=== PATIENT | female | born 1950 | race Caucasian/White ===

== ENCOUNTER 2021-07-16 16:01 | Inpatient (IN) | payer OTHER ==
[~2021-07-16] VITALS: Ht 152.4 cm; Wt 74.8 kg
[~2021-07-16 16:01] MED LIST: ATARAX25 MG PO; AXID PO; BROVANA15 MCG/2 M INH; BUMEX 1MG TABLET1 MG PO; CARAFATE1 GM PO; CLARITIN10 MG PO; COUMADIN 2MG TAB2 MG PO; COZAAR100 MG PO; DULOXETINE HCL20 MG PO; EMBEDA ER 20-01 EACH PO; GABAPENTIN300 MG PO; GLIMEPIRIDE4 MG PO; GLUCOPHAGE1000 MG PO; HYDROCODON-ACE1 EAC2 PO; HYDROCODONE-APA1 TAB PO; KADIAN20 MG PO; LEVEMIR100 UNIT/1 SUBD; LINZESS290 MCG PO; LIPITOR20 MG PO; MORPHINE 15MG E15 MG PO; MORPHINE SULFAT10 M1 PO; MORPHINE SULFAT15 M1 PO; MS CONTIN15 M1 PO; MS CONTIN15 MG PO; NARCAN4 MG; NEURONTIN600 MG PO; NORCO 5-325 TA1 EAC1 PO; NORCO 5-325 TA1 EACH PO; NORCO 5/3251 EACH PO; NORVASC10 MG PO; NOVOLOG DO100 UNIT/M SUBD; OXYGEN; PHENERGAN25 M1 PO; PROAIR HFA8.5 GM INH; PROTONIX 40MG T40 MG PO; PULMICORT0.5 MG/2 M INH; REGLAN10 MG PO; SPIRIVA 18MCG18 MCG INH; TESSALON PERLE100 M1 PO; VENTOLIN (2.5 MG/3 M INH
[2021-07-16 22:34] LABS: IRON % SATURATION 16.6 %SAT (20-50)
[2021-07-16 22:37] LABS: BASOPHIL 0.5 % (0-2); EOSINOPHIL 0.5 % (0-7); HCT 44.6 % (37.0-47.0); HGB 14.3 g/dl (12.5-16.0); LYMPHOCYTE 54.1 % (15-48); MCH 27.1 pg (25.0-31.0); MCHC 32.1 g/dL (32.0-36.0); MCV 84.6 fL (78.0-100.0); MONOCYTE 4.7 % (0-12); MPV 9.9 fL (6.0-9.5); NEUTROPHIL 39.6 % (41-80); NRBC 0; RBC 5.27 M/uL (4.20-5.40)
[2021-07-16 22:40] LABS: LACTIC ACID 1.7 mmol/L (0.4-1.9)
[2021-07-16 22:51] LABS: PLT 269 K/uL (150-400); WBC 28.4 K/uL (4.0-10.5)
[2021-07-16 23:04] LABS: ALBUMIN 3.7 g/dL (3.4-5.0); ALKALINE PHOSHATASE 88 U/L (46-116); ALT 21 U/L (14-59); AST 17 U/L (15-37); BILIRUBIN - TOTAL 0.3 mg/dL (0.2-1.0); BUN 48 mg/dL (7-18); BUN/CREAT RATIO (CALC) 13.9 RATIO; C-REACTIVE PROTEIN < 0.20 mg/dL (<=0.90); CHLORIDE 99 mmol/L (98-107); CO2 (BICARBONATE) 23 mmol/L (21-32); CPK 98 U/L (26-192); CREATININE 3.46 mg/dL (0.51-0.95); GLOBULIN (CALCULATION) 3.7 g/dL; GLUCOSE 197 mg/dL (74-106); POTASSIUM 3.7 mmol/L (3.5-5.1); TOTAL PROTEIN 7.4 g/dL (6.4-8.2)
[2021-07-16 23:21] LABS: CORONAVIRUS 2019 SARS-COV-2 NEGATIVE (NEGATIVE); INFLUENZA A NAA NEGATIVE (NEGATIVE)
[2021-07-17 01:17] LABS: BILIRUBIN 2+ mg/dL (NEGATIVE); BLOOD NEGATIVE Ery/uL (NEGATIVE); CLARITY CLEAR (CLEAR); COLOR YELLOW (YELLOW); GLUCOSE (U) NORMAL (NORMAL); LEUKOCYTES NEGATIVE Leu/uL (NEGATIVE); NITRITE NEGATIVE (NEGATIVE); PROTEIN TRACE (LOW) mg/dL (NEGATIVE); SPECIFIC GRAVITY >=1.030 (1.001-1.030); UROBILINOGEN 0.2 mg/dL (0.2-1.0)
[2021-07-17 01:22] LABS: AMPHETAMINES NEGATIVE (NEGATIVE); BARBITURATES NEGATIVE (NEGATIVE); ECSTASY (MDMA) NEGATIVE (NEGATIVE); MARIJUANA (THC) NEGATIVE (NEGATIVE); METHADONE NEGATIVE (NEGATIVE); OPIATES POSITIVE (NEGATIVE); OXYCODONE NEGATIVE (NEGATIVE)
[2021-07-17] MEDS ORDERED: NORCO 5-325 TA1 EACH PO (02:31)
[2021-07-17 06:04] LABS: BASOPHIL 0.4 % (0-2); EOSINOPHIL 0.8 % (0-7); HGB 12.6 g/dl (12.5-16.0); LYMPHOCYTE 64.1 % (15-48); MCH 27.3 pg (25.0-31.0); MCHC 31.5 g/dL (32.0-36.0); MCV 86.6 fL (78.0-100.0); MONOCYTE 4.4 % (0-12); MPV 9.2 fL (6.0-9.5); NEUTROPHIL 29.9 % (41-80); NRBC 0; PLT 235 K/uL (150-400); RBC 4.62 M/uL (4.20-5.40); RDW 14.1 % (11.5-14.0)
[2021-07-17 06:10] LABS: INR 1.03 (0.9-1.2); PROTHROMBIN TIME 12.9 SECONDS (11.8-13.4); PTT 25.8 SECONDS (24.4-34.7)
[2021-07-17 06:12] LABS: WBC 31.1 K/uL (4.0-10.5)
[2021-07-17 06:38] LABS: BILIRUBIN - TOTAL 0.2 mg/dL (0.2-1.0); BUN/CREAT RATIO (CALC) 13.5 RATIO; CREATININE 3.63 mg/dL (0.51-0.95); GLOBULIN (CALCULATION) 3.1 g/dL; MAGNESIUM 1.5 mg/dL (1.8-2.4); PHOSPHORUS 7.5 mg/dL (2.6-4.7); POTASSIUM 3.8 mmol/L (3.5-5.1); TOTAL PROTEIN 6.1 g/dL (6.4-8.2)
[2021-07-18 06:11] LABS: BUN/CREAT RATIO (CALC) 17.5 RATIO; CREATININE 2.91 mg/dL (0.51-0.95); PHOSPHORUS 4.9 mg/dL (2.6-4.7); POTASSIUM 3.8 mmol/L (3.5-5.1)
[2021-07-19 06:52] LABS: CREATININE 1.1 mg/dL (0.51-0.95); POTASSIUM 4.1 mmol/L (3.5-5.1)
[2021-07-19] MEDS ORDERED: LACTOBACILLUS1 EACH PO (08:48)
[2021-07-19] MEDS ORDERED: LOPRESSOR25 MG PO (08:51)
[2021-07-19] MEDS ORDERED: NEURONTIN100 MG PO (08:53)
[2021-07-19 09:52] LABS: BASOPHIL 0.4 % (0-2); EOSINOPHIL 0.9 % (0-7); HCT 38.1 % (37.0-47.0); HGB 12.1 g/dl (12.5-16.0); MCH 27.3 pg (25.0-31.0); MCHC 31.8 g/dL (32.0-36.0); MONOCYTE 3.8 % (0-12); MPV 10.1 fL (6.0-9.5); NEUTROPHIL 37.3 % (41-80); NRBC 0; PLT 219 K/uL (150-400); RBC 4.43 M/uL (4.20-5.40); RDW 13.9 % (11.5-14.0); WBC 15.7 K/uL (4.0-10.5)
[2021-07-20 04:13] LABS: BASOPHIL 0.2 % (0-2); EOSINOPHIL 0.1 % (0-7); HCT 37.3 % (37.0-47.0); HGB 11.7 g/dl (12.5-16.0); LYMPHOCYTE 61.9 % (15-48); MCH 26.7 pg (25.0-31.0); MCHC 31.4 g/dL (32.0-36.0); MONOCYTE 4.3 % (0-12); NEUTROPHIL 32.7 % (41-80); NRBC 0; PLT 205 K/uL (150-400); RBC 4.39 M/uL (4.20-5.40); RDW 13.6 % (11.5-14.0); WBC 20.9 K/uL (4.0-10.5)
[2021-07-20 04:29] LABS: BUN/CREAT RATIO (CALC) 19.7 RATIO; CREATININE 0.71 mg/dL (0.51-0.95); MAGNESIUM 1.5 mg/dL (1.8-2.4); POTASSIUM 3.9 mmol/L (3.5-5.1)
[2021-07-20] MEDS ORDERED: PROMETHEGA12.5 MG/SU PR ×2 (10:59→15:26)
[2021-07-20] MEDS ORDERED: ONDANSETRON ODT4 MG PO ×2 (10:59→15:26)
[2021-07-20] MEDS ORDERED: PREDNISONE 20MG20 MG PO ×2 (11:05→15:26)
[2021-07-20] MEDS ORDERED: DUONEB 2.5-0.5M1 AMP NEB ×2 (11:05→15:26)
[2021-07-20] MEDS ORDERED: CEFDINIR300 MG PO ×2 (11:06→15:26)
[2021-07-20] MEDS ORDERED: ADVAIR HFA 115-28 GM INH ×2 (11:30→15:26)
[2021-07-20] MEDS ORDERED: LOPRESSOR25 MG PO (15:27)
== END 2021-07-20 15:56 | disposition home health service (06) | DRG 682 ==
LOC: FER 16:01 → FMS 07-17 00:56
PROVIDERS: Emergency Medicine Emergency Medical Services; Internal Medicine Nephrology; Nurse Practitioner; ADMIT Allergy & Immunology Allergy
DX: N17.9 Acute kidney failure, unspecified (principal); G92.8 Other toxic encephalopathy; C91.10 Chronic lymphocytic leukemia of B-cell type not having achieved remission; D68.51 Activated protein C resistance; N30.00 Acute cystitis without hematuria; E11.9 Type 2 diabetes mellitus without complications; I10 Essential (primary) hypertension; J44.9 Chronic obstructive pulmonary disease, unspecified; E03.9 Hypothyroidism, unspecified; D64.9 Anemia, unspecified; E78.00 Pure hypercholesterolemia, unspecified; K76.0 Fatty (change of) liver, not elsewhere classified; G89.29 Other chronic pain; Z90.710 Acquired absence of both cervix and uterus; Z90.89 Acquired absence of other organs; Z90.49 Acquired absence of other specified parts of digestive tract; Z88.2 Allergy status to sulfonamides; Z88.8 Allergy status to other drugs, medicaments and biological substances; Z87.442 Personal history of urinary calculi; Z98.1 Arthrodesis status; Z87.891 Personal history of nicotine dependence; Z79.4 Long term (current) use of insulin; Z79.84 Long term (current) use of oral hypoglycemic drugs; Z79.899 Other long term (current) drug therapy
CPT/HCPCS: 36415; 36600; 70450; 71045; 71250; 72128; 72131; 76770; 80048; 80053; 80305; 81003; 82140; 82550; 82607; 82803; 82962; 83540; 83550; 83605; 83615; 83735; 84100; 84145; 84484; 84550; 85025; 85610; 85730; 86140; 93005; 94010; 94640; 94760; 97110; 97162; 97166; 97530-GP; 97535; J0360; J0456; J0696; J0780; J1644; J2270; J2405; J3475; J7030; J7050; J7120; J7512; Q0169; U0002

== ENCOUNTER 2021-08-27 16:04 | Inpatient (IN) | payer OTHER ==
[~2021-08-27] VITALS: Ht 152.4 cm; Wt 79.0 kg
[~2021-08-27 16:04] MED LIST changes: +ADVAIR HFA 115-28 GM INH; +CEFDINIR300 MG PO; +DUONEB 2.5-0.5M1 AMP NEB; +HYDROCODON-ACE1 EAC6 PO; +LACTOBACILLUS1 EACH PO; +LOPRESSOR25 MG PO; +NEURONTIN100 MG PO; +ONDANSETRON ODT4 MG PO; +PREDNISONE 20MG20 MG PO; +PROMETHEGA12.5 MG/SU PR; +ZOFRAN4 M1 PO
[2021-08-27 17:34] LABS: BASOPHIL 0.3 % (0-2); HGB 13.4 g/dl (12.5-16.0); MCH 26.8 pg (25.0-31.0); MCHC 31.2 g/dL (32.0-36.0); MONOCYTE 4.6 % (0-12); MPV 8.7 fL (6.0-9.5); NEUTROPHIL 36.9 % (41-80); NRBC 0; PLT 250 K/uL (150-400); RDW 13.1 % (11.5-14.0); WBC 22.6 K/uL (4.0-10.5)
[2021-08-27 17:38] LABS: INR 0.95 (0.9-1.2); PROTHROMBIN TIME 12.1 SECONDS (11.8-13.4); PTT 20.3 SECONDS (24.4-34.7)
[2021-08-27 17:44] LABS: LYMPHOCYTE 56.8 % (15-48)
[2021-08-27 17:46] LABS: ALBUMIN 3.5 g/dL (3.4-5.0); BILIRUBIN - TOTAL 0.3 mg/dL (0.2-1.0); BUN/CREAT RATIO (CALC) 19.4 RATIO; CREATININE 0.62 mg/dL (0.51-0.95); GLOBULIN (CALCULATION) 3.7 g/dL; POTASSIUM 4.5 mmol/L (3.5-5.1); TOTAL PROTEIN 7.2 g/dL (6.4-8.2)
[2021-08-27 18:44] LABS: LACTIC ACID 1.6 mmol/L (0.4-1.9)
[2021-08-27 20:14] LABS: BILIRUBIN NEGATIVE (NEGATIVE); BLOOD TRACE-INTACT Ery/uL (NEGATIVE); CLARITY CLEAR (CLEAR); COLOR YELLOW (YELLOW); GLUCOSE (U) NORMAL (NORMAL); LEUKOCYTES TRACE Leu/uL (NEGATIVE); NITRITE NEGATIVE (NEGATIVE); PROTEIN 1+ mg/dL (NEGATIVE); SPECIFIC GRAVITY <=1.005 (1.001-1.030); UROBILINOGEN 0.2 mg/dL (0.2-1.0); pH 6.5 (5.0-9.0)
[2021-08-27 20:23] LABS: BACTERIA TRACE
--- NOTE | 2021-08-28 05:22 | NUR ---
AFTER ONE TIME LABATOLOL AGAIN D/T ELEVATED BP PTS BP HAS DECREASED TO 182/82. WILL CHECK AGAIN IN 10 MINS.
--- NOTE | 2021-08-28 05:30 | NUR ---
PT BP NOW 184/76; PT RESTING COMFORTABLY.
--- NOTE | 2021-08-28 15:42 | NUR ---
08/28/21 Ms. Palma lives at home with her spouse. She has 02 at 2 L provided by [facility] in [place] and a rw. She is currently on 3L. A referral was made to [facility] per patient choice. - Please notify [facility] at [phone] if patient discharges over the weekend. IF home 02 orders increase to 3L, Please fax orders [facility] at [phone] and instruct patient on turning dial to 3 L.
[2021-08-29 06:50] LABS: BASOPHIL 0.4 % (0-2); EOSINOPHIL 1.5 % (0-7); HCT 41.3 % (37.0-47.0); HGB 12.9 g/dl (12.5-16.0); MCH 27.2 pg (25.0-31.0); MCHC 31.2 g/dL (32.0-36.0); MCV 86.9 fL (78.0-100.0); MONOCYTE 4.6 % (0-12); MPV 8.5 fL (6.0-9.5); NEUTROPHIL 28.9 % (41-80); NRBC 0; PLT 217 K/uL (150-400); RBC 4.75 M/uL (4.20-5.40); WBC 19.7 K/uL (4.0-10.5)
[2021-08-29 06:52] LABS: LYMPHOCYTE 64.2 % (15-48)
[2021-08-29 06:59] LABS: BUN/CREAT RATIO (CALC) 15.8 RATIO; CREATININE 0.57 mg/dL (0.51-0.95); POTASSIUM 4.1 mmol/L (3.5-5.1)
--- NOTE | 2021-08-29 15:34 | NUR ---
08/29 [facility] in [place] verified that patient will not have a co-pay for Eliquis.
[2021-08-30 06:36] LABS: BASOPHIL 0.3 % (0-2); EOSINOPHIL 1.2 % (0-7); HCT 39.6 % (37.0-47.0); HGB 12.1 g/dl (12.5-16.0); MCH 27.1 pg (25.0-31.0); MCHC 30.6 g/dL (32.0-36.0); MCV 88.6 fL (78.0-100.0); MONOCYTE 3.7 % (0-12); MPV 8.8 fL (6.0-9.5); NEUTROPHIL 17.9 % (41-80); NRBC 0; PLT 217 K/uL (150-400); RBC 4.47 M/uL (4.20-5.40); WBC 25.4 K/uL (4.0-10.5)
[2021-08-30 06:39] LABS: LYMPHOCYTE 76.6 % (15-48)
[2021-08-30 06:50] LABS: BUN/CREAT RATIO (CALC) 19.4 RATIO; CREATININE 0.67 mg/dL (0.51-0.95); POTASSIUM 3.9 mmol/L (3.5-5.1)
[2021-08-31 06:44] LABS: BASOPHIL 0.4 % (0-2); EOSINOPHIL 1.1 % (0-7); HCT 38.8 % (37.0-47.0); HGB 12.1 g/dl (12.5-16.0); LYMPHOCYTE 74.6 % (15-48); MCH 27.2 pg (25.0-31.0); MCHC 31.2 g/dL (32.0-36.0); MCV 87.2 fL (78.0-100.0); MONOCYTE 3.5 % (0-12); MPV 8.6 fL (6.0-9.5); NEUTROPHIL 20.2 % (41-80); PLT 193 K/uL (150-400); RBC 4.45 M/uL (4.20-5.40); RDW 12.7 % (11.5-14.0); WBC 22.2 K/uL (4.0-10.5)
[2021-08-31 06:46] LABS: NRBC 0
[2021-08-31 07:12] LABS: BUN/CREAT RATIO (CALC) 28.8 RATIO; CREATININE 0.59 mg/dL (0.51-0.95); POTASSIUM 3.8 mmol/L (3.5-5.1)
[2021-09-01 06:13] LABS: BASOPHIL 0.3 % (0-2); EOSINOPHIL 1.1 % (0-7); HCT 35.6 % (37.0-47.0); HGB 11.1 g/dl (12.5-16.0); MCH 27.1 pg (25.0-31.0); MCHC 31.2 g/dL (32.0-36.0); MONOCYTE 3.4 % (0-12); MPV 9.4 fL (6.0-9.5); NRBC 0; PLT 191 K/uL (150-400); RBC 4.09 M/uL (4.20-5.40); RDW 12.8 % (11.5-14.0); WBC 22.8 K/uL (4.0-10.5)
[2021-09-01 06:24] LABS: BUN/CREAT RATIO (CALC) 25.5 RATIO; CREATININE 0.55 mg/dL (0.51-0.95); POTASSIUM 3.6 mmol/L (3.5-5.1)
--- NOTE | 2021-09-01 12:15 | NUR ---
09/01/21 An order was increase in 02 from 2L to 3L was faxed to [facility]. Report given to MS ALEAH Lemus.
[2021-09-02 07:18] LABS: BASOPHIL 0.4 % (0-2); EOSINOPHIL 1.5 % (0-7); HCT 39.1 % (37.0-47.0); HGB 12.1 g/dl (12.5-16.0); MCH 27.3 pg (25.0-31.0); MCHC 30.9 g/dL (32.0-36.0); MCV 88.3 fL (78.0-100.0); MONOCYTE 4.8 % (0-12); MPV 9.2 fL (6.0-9.5); NRBC 0; PLT 178 K/uL (150-400); RBC 4.43 M/uL (4.20-5.40); WBC 18.3 K/uL (4.0-10.5)
[2021-09-02 07:37] LABS: BUN/CREAT RATIO (CALC) 25.5 RATIO; CREATININE 0.55 mg/dL (0.51-0.95)
[2021-09-02] MEDS ORDERED: ELIQUIS5 MG PO (11:55)
[2021-09-02] MEDS ORDERED: NORVASC5 MG PO (11:55)
--- NOTE | 2021-09-02 13:32 | NUR ---
09/02/21 [facility] was notified of discharge. Report given to Poonam Gilmore MS RN
== END 2021-09-02 13:06 | disposition home health service (06) | DRG 299 ==
LOC: FER 16:04 → FMS 20:24
PROVIDERS: Emergency Medicine; Internal Medicine; ADMIT Internal Medicine
DX: I82.402 Acute embolism and thrombosis of unspecified deep veins of left lower extremity (principal); I26.94 Multiple subsegmental thrombotic pulmonary emboli without acute cor pulmonale; D68.51 Activated protein C resistance; C91.10 Chronic lymphocytic leukemia of B-cell type not having achieved remission; J44.9 Chronic obstructive pulmonary disease, unspecified; Z20.822 Contact with and (suspected) exposure to COVID-19; E11.9 Type 2 diabetes mellitus without complications; I10 Essential (primary) hypertension; K76.0 Fatty (change of) liver, not elsewhere classified; D64.9 Anemia, unspecified; R51.9 Headache, unspecified; E78.00 Pure hypercholesterolemia, unspecified; Z99.81 Dependence on supplemental oxygen; Z87.442 Personal history of urinary calculi; Z90.710 Acquired absence of both cervix and uterus; Z90.89 Acquired absence of other organs; Z98.890 Other specified postprocedural states; Z15.89 Genetic susceptibility to other disease; Z82.3 Family history of stroke; Z80.51 Family history of malignant neoplasm of kidney; Z87.891 Personal history of nicotine dependence; Z88.2 Allergy status to sulfonamides; Z88.8 Allergy status to other drugs, medicaments and biological substances; Z79.899 Other long term (current) drug therapy; Z79.84 Long term (current) use of oral hypoglycemic drugs; Z79.51 Long term (current) use of inhaled steroids; Z90.49 Acquired absence of other specified parts of digestive tract
CPT/HCPCS: 36415; 71046; 71275; 80048; 80053; 81001; 82962; 83605; 84145; 84484; 85025; 85610; 85730; 87040; 93005; 94640; J0360; J1170; J1650; J2405; J3490; Q9967; U0002

== ENCOUNTER 2021-10-07 16:29 | Emergency (ER) | payer OTHER ==
[~2021-10-07 16:29] MED LIST changes: +ELIQUIS5 MG PO; +NORVASC5 MG PO
[2021-10-07] MEDS ORDERED: HYDROCODON-ACE1 EAC6 PO (16:34)
[2021-10-07 18:45] LABS: BASOPHIL 0.3 % (0-2); EOSINOPHIL 0.9 % (0-7); HGB 12.5 g/dl (12.5-16.0); LYMPHOCYTE 66.5 % (15-48); MCH 27.5 pg (25.0-31.0); MCHC 32.1 g/dL (32.0-36.0); MCV 85.9 fL (78.0-100.0); MONOCYTE 3.7 % (0-12); MPV 9.3 fL (6.0-9.5); NEUTROPHIL 28.1 % (41-80); NRBC 0; PLT 244 K/uL (150-400); RBC 4.54 M/uL (4.20-5.40); RDW 13.8 % (11.5-14.0)
[2021-10-07 18:51] LABS: WBC 29.7 K/uL (4.0-10.5)
[2021-10-07 19:19] LABS: ALBUMIN 3.7 g/dL (3.4-5.0); BILIRUBIN - TOTAL 0.3 mg/dL (0.2-1.0); GLOBULIN (CALCULATION) 3.4 g/dL; TOTAL PROTEIN 7.1 g/dL (6.4-8.2)
[2021-10-07 19:20] LABS: CREATININE 0.71 mg/dL (0.51-0.95); POTASSIUM 4.1 mmol/L (3.5-5.1)
== END 2021-10-07 20:31 | disposition home or self-care (01) ==
LOC: FER 16:29
PROVIDERS: Emergency Medicine
DX: I16.0 Hypertensive urgency (principal); I10 Essential (primary) hypertension; E11.9 Type 2 diabetes mellitus without complications; J44.9 Chronic obstructive pulmonary disease, unspecified; Z99.81 Dependence on supplemental oxygen; Z79.01 Long term (current) use of anticoagulants; Z88.0 Allergy status to penicillin; Z88.2 Allergy status to sulfonamides; Z88.8 Allergy status to other drugs, medicaments and biological substances; Z79.4 Long term (current) use of insulin; Z79.84 Long term (current) use of oral hypoglycemic drugs; Z79.899 Other long term (current) drug therapy
CPT/HCPCS: 36415; 70450; 71045; 80053; 84484; 85025; 93005; J1170; J2405; J3490